=== PATIENT | male | born 1995 | race American Indian/Alaskan Native ===

== ENCOUNTER 2023-10-17 01:38 | Emergency (ER) | payer SELFPAY ==
[2023-10-17] MEDS: Ibuprofen 800 MG Tab PO ONE (02:30)
[2023-10-17 03:20] VITALS: BP 144/83; PULSE 87
== END 2023-10-17 03:20 | disposition home or self-care (01) ==
LOC: MW.ED 01:38
DX: S42.001A Fracture of unspecified part of right clavicle, initial encounter for closed fracture (principal); X50.0XXA Overexertion from strenuous movement or load, initial encounter; Z90.49 Acquired absence of other specified parts of digestive tract; Z75.8 Other problems related to medical facilities and other health care
CPT/HCPCS: 73030; 99283; A9270